=== PATIENT | male | born 1960 | race Caucasian/White ===

== ENCOUNTER → 2017-07-13 | Outpatient (CLI) | payer MEDICARE ==
[~2017-07-13] VITALS: Ht 171.4 cm; Wt 74.8 kg
[~2017-07-13] MED LIST: ALLO100T PO; CARV25TA PO; CHOL5000 PO; GLIP5TAB13 PO; LEVO100T7 PO; METF500T4 PO; MYCO500T3 PO; PRD10T PO; SIMV20TA3 PO; TACR1CAP8 PO; TIZA4CAP8 PO
== END ==
LOC: PREOP 05:34
PROVIDERS: ATTEND Otolaryngology Otolaryngology/Facial Plastic Surgery
DX: Z01.818 Encounter for other preprocedural examination (principal); J32.9 Chronic sinusitis, unspecified

== ENCOUNTER 2017-07-20 08:03 | Day surgery (SDC) | payer MEDICARE ==
[~2017-07-20] VITALS: Ht 171.4 cm; Wt 74.8 kg
--- OUTSIDE RECORDS SUMMARY | 2017-07-20 08:07 | XMS REPORT | Clinical Summary ---
Author Author Admin, [facility] Organization [facility] Address Unknown Phone Unavailable Allergies, Adverse Reactions, Alerts Allergy Name Reaction Description Start Date Severity Status Provider Allergies Unknown Conditions or Problems Problem Name Problem Code Onset Date Status Entry Date Provider Comment Standard Description Annotate HEALTH EXAMINATION OF DEFINED SUBPOPULATION V70.5 Active Ana Gonzales Health examination of defined subpopulations Medication List Medication Instructions Start Date Stop Date Generic Name NDC Status Provider Patient Instruction Drug Treatment Unknown - unknown Procedures Code Procedure Name Date Entry Date Standard Description CPT-03041 Spec Collection and Handling Fee 14:25:01 CDT CPT-50593 Spec Collection and Handling Fee 11:25:11 CDT
--- OUTSIDE RECORDS SUMMARY | 2017-07-20 08:07 | XMS REPORT | Referral Summary ---
Author Author [facility] Organization [facility] Address Unknown Phone Unavailable Care Team Providers Care Ship Painter Helper Name Role Phone Justin Julian PCP Encounter VC Date(s): 02/12/16 - 02/14/16 [facility] [address] [place] [address] Discharge Disposition: 01-Home or Self Care Attending Physician: Tamara Alberts MD Admitting Physician: Amanda Nunn MD Vital Signs Most recent to 1 oldest [Reference Range]: Temperature Oral 36.7 degC [35.8-37.3 degC] (02/14/16 11:00 AM) Temperature Temporal 36.2 degC Artery [36.3-37.8 *LOW* degC] (02/12/16 4:26 PM) Peripheral Pulse 78 bpm Rate [60-100 bpm] (02/14/16 11:00 AM) Respiratory Rate 18 br/min [14-20 br/min] (02/14/16 11:00 AM) Blood Pressure 155/89 mmHg [90-140/60-90 mmHg] *HI* (02/14/16 11:00 AM) Mean Arterial 111 mmHg Pressure, Cuff (02/14/16 11:00 AM) SpO2 99 % (02/14/16 11:00 AM) Problem List Condition Effective Dates Status Health Status Informant Acute Active pain(Confirmed) Bowel Active dysfunction(Confirme d)1 1Problem added automatically by system based on initiation of Bowel Dysfunction Plan of Care Allergies, Adverse Reactions, Alerts Substance Reaction Severity Status Tape Rash Active 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 Medications allopurinol 100 mg oral tablet 100 mg 1 tabs, Oral, Daily, 0 Refill(s) Start Date: 02/12/16 Status: Ordered baclofen 10 mg oral tablet 10 mg 1 tabs, Oral, TID, as needed for muscle spasm, 0 Refill(s) Start Date: 02/12/16 Status: Ordered carvedilol 25 mg oral tablet 25 mg 1 tabs, Oral, BID, 0 Refill(s) Start Date: 02/12/16 Status: Ordered Feosol 200 mg (65 mg elemental iron) oral tablet 1 tabs, Oral, Daily, 0 Refill(s) Start Date: 02/12/16 Status: Ordered Gammaplex 35 mg, IV, q4wk, [facility] Prescribed by Dr Campbell, 0 Refill(s) Start Date: 02/12/16 Status: Ordered glipiZIDE 5 mg oral tablet 2.5 mg 0.5 tabs, Oral, Daily, # 15 tabs, 0 Refill(s) Start Date: 02/14/16 Stop Date: 03/15/16 Status: Ordered HYDROcodone-acetaminophen 10 mg-325 mg oral tablet range dose 1 tabs, Oral, q6hr, as needed for pain, 0 Refill(s) Start Date: 02/12/16 Status: Ordered Imuran 50 mg oral tablet 50 mg 1 tabs, Oral, Daily, # 30 tabs, 0 Refill(s) Start Date: 02/14/16 Stop Date: 03/15/16 Status: Ordered levothyroxine 100 mcg (0.1 mg) oral tablet 100 mcg 1 tabs, Oral, Daily, 0 Refill(s) Start Date: 02/12/16 Status: Ordered OTC Vitamin D OTC Vitamin D, See Instructions, 1 tabs oral once daily, 0 Refill(s) Start Date: 02/12/16 Status: Ordered predniSONE 10 mg, Oral, Daily, 0 Refill(s) Start Date: 02/12/16 Status: Ordered Prograf 2 mg, Oral, q12hr, 0 Refill(s) Start Date: 02/12/16 Status: Ordered simvastatin 20 mg, Oral, Bedtime (once a day), 0 Refill(s) Start Date: 02/12/16 Status: Ordered Results Hematology Most recent to 1 oldest [Reference Range]: WBC [4.8-10.8 5.6 10*3/uL 10*3/uL] (02/14/16 6:32 AM) RBC [4.60-6.20] 3.10 *LOW* (02/14/16 6:32 AM) Hgb [14.0-18.0 8.8 gm/dL gm/dL] *LOW* (02/14/16 6:32 AM) Hct [42.0-52.0 %] 26.9 % *LOW* (02/14/16 6:32 AM) MCV [82.0-99.0 fL] 86.8 fL (02/14/16 6:32 AM) MCH [27.0-32.0 pg] 28.4 pg (02/14/16 6:32 AM) MCHC [32.0-36.0 32.7 gm/dL gm/dL] (02/14/16 6:32 AM) RDW [11.5-14.5 %] 15.0 % *HI* (02/14/16 6:32 AM) Platelet [150-400 153 10*3/uL 10*3/uL] (02/14/16 6:32 AM) MPV [9.4-12.3 fL] 10.1 fL (02/14/16 6:32 AM) Immature 1.0 % Granulocytes (02/13/16 8:25 AM) [0.0-1.0 %] Neutrophils [51-75 79 % %] *HI* (02/13/16 8:25 AM) Lymphocytes [20-46 10 % %] *LOW* (02/13/16 8:25 AM) Monocytes [4-11 %] 8 % (02/13/16 8:25 AM) Eosinophils [0-4 %] 1 % (02/13/16 8:25 AM) Basophils [0-2 %] 0 % (02/13/16 8:25 AM) Neutro Absolute 3.82 10*3 [1.90-7.00 10*3] (02/13/16 8:25 AM) Lymph Absolute 0.50 10*3 [0.80-3.30 10*3] *LOW* (02/13/16 8:25 AM) Elbert Absolute 0.40 10*3 [0.30-1.00 10*3] (02/13/16 8:25 AM) Eos Absolute 0.05 10*3 [0.00-0.50 10*3] (02/13/16 8:25 AM) Baso Absolute 0.00 10*3 [0.00-0.20 10*3] (02/13/16 8:25 AM) Nucleated RBC 0.0 /100 WBC Automated [0 /100 (02/13/16 8:25 AM) WBC] Chemistry Most recent to 1 oldest [Reference Range]: Sodium Lvl [136-144 135 mEq/L mEq/L] *LOW* (02/14/16 6:32 AM) Potassium Lvl 4.5 mEq/L [3.6-5.1 mEq/L] (02/14/16 6:32 AM) Chloride [99-109 112 mEq/L mEq/L] *HI* (02/14/16 6:32 AM) CO2 [22-32 mEq/L] 19 mEq/L *LOW* (02/14/16 6:32 AM) AGAP [3-20] 4 (02/14/16 6:32 AM) BUN [4-20 mg/dL] 30 mg/dL *HI* (02/14/16 6:32 AM) Glucose Lvl [70-100 128 mg/dL mg/dL] *HI* (02/14/16 6:32 AM) Creatinine Lvl 1.64 mg/dL [0.64-1.27 mg/dL] *HI* (02/14/16 6:32 AM) eGFR [>60] 44 1 *ABN* (02/14/16 6:32 AM) Calcium Lvl 9.0 mg/dL [8.6-10.0 mg/dL] (02/14/16 6:32 AM) Albumin Lvl [3.5-4.8 2.8 gm/dL gm/dL] *LOW* (02/14/16 6:32 AM) Total Protein 6.1 gm/dL [6.1-7.9 gm/dL] (02/12/16 1:02 AM) Globulin [1.9-4.3 2.8 gm/dL gm/dL] (02/12/16 1:02 AM) ALT [17-63 U/L] 15 U/L *LOW* (02/12/16 1:02 AM) AST [15-41 U/L] 14 U/L *LOW* (02/12/16 1:02 AM) Alk Phos [26-104 75 U/L U/L] (02/12/16 1:02 AM) Bili Total [0.2-1.2 0.5 mg/dL 2 mg/dL] (02/12/16 1:02 AM) Iron [65-175 mcg/dL] 76 mcg/dL (02/13/16 8:25 AM) TIBC [268-490 267 mcg/dL mcg/dL] *LOW* (02/13/16 8:25 AM) Iron Sat [11-46 %] 28 % (02/13/16 8:25 AM) Transferrin [180-329 179 mg/dL mg/dL] *LOW* (02/13/16 8:25 AM) Magnesium Lvl 1.2 mg/dL [1.8-2.5 mg/dL] *LOW* (02/13/16 8:25 AM) Phosphorus [2.4-4.7 2.5 mg/dL 3 mg/dL] (02/14/16 6:32 AM) Blood Glucose, 181 mg/dL Capillary [74-106 *HI* mg/dL] (02/14/16 12:19 PM) Hgb A1c [4.1-5.6 %] 6.7 % *HI* (02/14/16 6:32 AM) eAvg Glucose 145.6 mg/dL (02/14/16 6:32 AM) 1Result Comment: Multiply eGFR results by 1.21 for race. 2Result Comment: Naproxen, specifically the metabolite O-desmethylnaproxen, may cause spurious elevation in Total Bilirubin levels. 3Result Comment: High dosages of liposomal Amphotericin B (AmBisome) therapy or other drug preparations that use a liposomal envelope to facilitate drug delivery may cause falsely elevated results for phosphorus. Therapeutic Drug Monitoring Most recent to 1 oldest [Reference Range]: Tacrolimus (Prograf) 13.1 ng/mL 1 Level (02/13/16 8:25 AM) 1Result Comment: Tacrolimus interpretation: Therapeutic Range: 5-15 Toxic Range: >20 NDT: No Detectable Level Microbiology Reports TEST: Stool Culture w/ Campy & Shigatoxin STATUS: Order in Progress BODY SITE: SOURCE: Stool COLLECTED DATE/TIME: 02/12/16 8:48 AM Stool Culture Culture in progress No pathogens isolated to date Immunizations No data available for this section Procedures No data available for this section Social History Social History Type Response Smoking Status Never smoker Assessment and Plan No data available for this section
--- OUTSIDE RECORDS SUMMARY | 2017-07-20 08:07 | XMS REPORT | CCD ---
Author Author JAROD QUEEN Organization Unknown Address [address] [facility] [address] [place] [address] Care Team Providers Care Double Needle Operator Lockstitch Name Role Phone BETI JUSTICE, JOELLEN LINDA Attphys Allergies Allergy Code Allergy Type Reaction Status VANCOMYCIN 37141 Drug allergy REDMANS SYNDROME Active Active Medications Unknown or Not Available. Problems Unknown or Not Available. Procedures Procedure Code Procedure Type Date Neuroplasty &/transpos median nrv carpal tunne; (-74 Disc outpt h/[place] [address] CPT 10/21/2016 BEDSIDE GLUCOSE [id number] SNOMED CT 10/21/2016 Results BEDSIDE GLUCOSE - Collect Date/Time: 10/21/2016 06:34 Test Name Code Test Result Test Units Test Ref Range GLUCOSE POCT 145 MG/DL L=70 H=100 Function Status Unknown or Not Available. History of Immunizations Immunization Code Date influenza, injectable, quadrivalent, preservative free 150 2015 Plan of Treatment Unknown or Not Available. Social History Smoking Status Code Start Date End Date Never smoker [id number] Vital Signs Vital Sign Value Unit Date/Time Recent/Initial? BMI (Body Mass Index) 25.39 kg/m2 10/20/2016 07:48 Initial VS Weight Measured 167 [lb_av] 10/20/2016 07:48 Initial VS Height 68 [in_i] 10/20/2016 07:48 Initial VS BSA (Body Surface Area) 1.91 m2 10/20/2016 07:48 Initial VS Function Status Unknown or Not Available. Goals Unknown or Not Available. ASSESSMENTS Unknown or Not Available. Health Concerns Section Unknown or Not Available.
--- OUTSIDE RECORDS SUMMARY | 2017-07-20 08:07 | XMS REPORT | Clinical Summary ---
Author Author Admin, [facility] Organization [facility] Address Unknown Phone Unavailable Allergies, Adverse Reactions, [...] Procedure Name Date Entry Date Standard Description CPT-18140 Spec Collection and Handling Fee 14:25:01 CDT CPT-79178 Spec Collection and Handling Fee 11:25:11 CDT
--- OUTSIDE RECORDS SUMMARY | 2017-07-20 08:07 | XMS REPORT | Clinical Summary ---
Author Author Admin, [facility] Organization [facility] Address Unknown Phone Unavailable Allergies, Adverse Reactions, Alerts Allergy Name Reaction Description Start Date Severity Status Provider No Known Allergies Kristal Elder Conditions or Problems Problem Name Problem Code Onset Date Status Entry Date Provider Comment Standard Description Annotate HEALTH EXAMINATION OF DEFINED SUBPOPULATION V70.5 Active Ana Gonzales Health examination of defined subpopulations Diabetes, Type 2 250.00 Active Michael Travis MD Diabetes mellitus without mention of complication, type II or unspecified type, not stated as uncontrolled Hyperlipidemia 272.4 Active Michael Travis MD Other and unspecified hyperlipidemia Hypertension 401.9 Active Michael Travis MD Unspecified essential hypertension Hydrocele Active Michael Travis MD Hydrocele , unspecified Medication List Medication Instructions Start Date Stop Date Generic Name NDC Status Provider Patient Instruction ELIQUIS 5 MG ORAL TABS by mouth twice a day APIXABAN 22200191617 Active Michael Travis MD Active GAMMAPLEX 20 GM/400ML IV SOLN 35MG ONCE A MONTH IMMUNE GLOBULIN (HUMAN ) 33948773224 Active Michael Travis MD Active GLIPIZIDE 5 MG ORAL TABS by mouth twice a day GLIPIZIDE 09396591370 Active Michael Travis MD Active LEVOTHYROXINE SODIUM 100 MCG ORAL TABS Take one by mouth daily LEVOTHYROXINE SODIUM 90641174877 Active Michael Travis MD Active WELCHOL 625 MG ORAL TABS 3 pils daily COLESEVELAM HCL 96669667450 Active Michael Travis MD Active SIMVASTATIN 20 MG ORAL TABS Take one by mouth daily SIMVASTATIN 79556233233 Active Michael Travis MD Active CARVEDILOL 25 MG ORAL TABS by mouth twice a day CARVEDILOL 26794480808 Active Michael Travis MD Active CELLCEPT 500 MG ORAL TABS by mouth twice a day MYCOPHENOLATE MOFETIL 39141776173 Active Michael Travis MD Active ASTAGRAF XL 1 MG ORAL [id number] 3mg daily TACROLIMUS 07279086848 Active Micahel Travis MD Active PREDNISONE 10 MG ORAL TABS Take one by mouth daily PREDNISONE 64154280794 Active Michael Travis MD Active Vital Signs Date Name Value Unit Range Description blood pressure, diastolic - 8462-4 87 mm[Hg] BP calderon blood pressure, systolic - 8480-6 137 mm[Hg] BP sys height E&M - 8302-2 67 [in_us] Bdy height pulse rate E&M - 8867-4 77 /min Heart rate temperature E&M 97.6 [degF] Body temperature weight E&M - 3141-9 177.5 [lb_av] Weight Measured Encounters Code Encounter Date Provider Facility CPT-56814 Level 3 New Patient 11:50:18 LUMBER ESTIMATOR Michael Travis MD [facility] Procedures Code Procedure Name Date Entry Date Standard Description CPT-84457 Spec Collection and Handling Fee 14:25:01 CDT CPT-93450 Spec Collection and Handling Fee 11:25:11 CDT
--- OUTSIDE RECORDS SUMMARY | 2017-07-20 08:07 | XMS REPORT | Clinical Summary ---
Author Author Admin, [facility] Organization [facility] [employer] Address Unknown Phone Unavailable Allergies, Adverse Reactions, [...] Procedure Name Date Entry Date Standard Description CPT-60202 Spec Collection and Handling Fee 11:25:11 CDT
--- OUTSIDE RECORDS SUMMARY | 2017-07-20 08:07 | XMS REPORT | Clinical Summary ---
Author Author Admin, [facility] Organization [facility] [employer] Address Unknown Phone Unavailable Allergies, Adverse Reactions, [...] Procedure Name Date Entry Date Standard Description CPT-39498 Spec Collection and Handling Fee 14:25:01 CDT CPT-61888 Spec Collection and Handling Fee 11:25:11 CDT
--- OUTSIDE RECORDS SUMMARY | 2017-07-20 08:08 | XMS REPORT | Referral Summary ---
Author Author [facility] Organization [facility] Address Unknown Phone Unavailable Care Team Providers Care Packing And Final Assembly Supervisor Name Role Phone Justin Julian PCP Encounter VC Date(s): 03/23/16 - 03/31/16 [facility] [address] [place] [address] Discharge Disposition: 01-Home or Self Care Attending Physician: Beth Love DO Admitting Physician: Jenifer Tobar DO Vital Signs Most recent to 1 oldest [Reference Range]: Temperature Oral 36.7 degC [35.8-37.3 degC] (03/31/16 9:00 AM) Peripheral Pulse 72 bpm Rate [60-100 bpm] (03/31/16 9:31 AM) Heart Rate Monitored 80 bpm [60-100 bpm] (03/27/16 3:18 PM) Respiratory Rate 18 br/min [14-20 br/min] (03/31/16 9:00 AM) Blood Pressure 157/88 mmHg [90-140/60-90 mmHg] *HI* (03/31/16 9:31 AM) Mean Arterial 100 mmHg Pressure, Cuff (03/27/16 8:00 PM) SpO2 95 % (03/31/16 9:00 AM) Remote Telemetry Ongoing (03/27/16 8:00 AM) Problem List Condition Effective Dates Status Health Status Informant Acute Active pain(Confirmed) At risk of pressure Active sore(Confirmed) Bowel Active dysfunction(Confirme d)1 Fluid Active imbalance(Confirmed) 2 1Problem added automatically by system based on initiation of Bowel Dysfunction Plan of Care 2Problem added automatically by system based on initiation of Fluid Volume Imbalance Plan of Care Allergies, Adverse Reactions, Alerts Substance Reaction Severity Status Tape Rash Active 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 Medications acyclovir 400 mg oral tablet 400 mg 1 tabs, Oral, BID, X 7 days, # 14 tabs, 0 Refill(s), Pharmacy: [facility], 1 tabs Oral BID,x7 days Start Date: 03/31/16 Stop Date: 04/07/16 Status: Ordered carvedilol 25 mg oral tablet 25 mg 1 tabs, Oral, BID, 0 Refill(s) Start Date: 02/12/16 Status: Ordered CellCept 500 mg oral tablet 500 mg 1 tabs, Oral, BID, 1 hour before or 2 hours after meals, # 60 tabs, 0 Refill(s), Pharmacy: [facility], 1 tabs Oral BID,Instr:1 hour before or 2 hours after meals Start Date: 03/31/16 Status: Ordered Eliquis 5 mg, Oral, BID, 0 Refill(s) Start Date: 03/23/16 Status: Ordered Fish Oil Oral, Daily, 0 Refill(s) Start Date: 03/23/16 Status: Ordered Gammaplex 35 mg, IV, q4wk, [facility] Prescribed by Dr Campbell, 0 Refill(s) Start Date: 02/12/16 Status: Ordered glipiZIDE 2.5 mg, Oral, Daily, 0 Refill(s) Start Date: 03/23/16 Status: Ordered levothyroxine 100 mcg (0.1 mg) oral tablet 100 mcg 1 tabs, Oral, Daily, 0 Refill(s) Start Date: 02/12/16 Status: Ordered predniSONE 10 mg, Oral, Daily, 0 Refill(s) Start Date: 02/12/16 Status: Ordered Prograf 2 mg, Oral, q12hr, 0 Refill(s) Start Date: 02/12/16 Status: Ordered simvastatin 20 mg, Oral, Bedtime (once a day), 0 Refill(s) Start Date: 02/12/16 Status: Ordered Vitamin D3 Oral, Daily, 0 Refill(s) Start Date: 03/23/16 Status: Ordered Results Hematology Most recent to 1 oldest [Reference Range]: WBC [4.8-10.8 8.3 10*3/uL 10*3/uL] (03/31/16 6:52 AM) RBC [4.60-6.20] 3.22 *LOW* (03/31/16 6:52 AM) Hgb [14.0-18.0 9.3 gm/dL gm/dL] *LOW* (03/31/16 6:52 AM) Hct [42.0-52.0 %] 28.5 % *LOW* (03/31/16 6:52 AM) MCV [82.0-99.0 fL] 88.5 fL (03/31/16 6:52 AM) MCH [27.0-32.0 pg] 28.9 pg (03/31/16 6:52 AM) MCHC [32.0-36.0 32.6 gm/dL gm/dL] (03/31/16 6:52 AM) RDW [11.5-14.5 %] 16.2 % *HI* (03/31/16 6:52 AM) Platelet [150-400 194 10*3/uL 10*3/uL] (03/31/16 6:52 AM) MPV [9.4-12.3 fL] 9.9 fL (03/31/16 6:52 AM) Neutrophils [51-75 82 % %] *HI* (03/31/16 6:52 AM) Band Man [0-8 %] 2 % (03/31/16 6:52 AM) Boutte Man [0-1 %] 3 % *HI* (03/31/16 6:52 AM) Myelo Man 3 % (03/31/16 6:52 AM) Lymphocytes [20-46 5 % %] *LOW* (03/31/16 6:52 AM) Monocytes [4-11 %] 5 % (03/31/16 6:52 AM) Eosinophils [0-4 %] 0 % (03/31/16 6:52 AM) Basophils [0-2 %] 0 % (03/31/16 6:52 AM) Neutro Absolute 6.97 10*3 [1.90-7.00 10*3] (03/31/16 6:52 AM) Lymph Absolute 0.42 10*3 [0.80-3.30 10*3] *LOW* (03/31/16 6:52 AM) [place] Absolute 0.42 10*3 [0.30-1.00 10*3] (03/31/16 6:52 AM) Eos Absolute 0.00 10*3 [0.00-0.50 10*3] (03/31/16 6:52 AM) Baso Absolute 0.00 10*3 [0.00-0.20 10*3] (03/31/16 6:52 AM) Polychrom Occasional *ABN* (03/29/16 6:28 AM) Tear Cell Occasional *ABN* (03/28/16 6:25 AM) Ovalocytes Occasional *ABN* (03/28/16 6:25 AM) Schistocyte Occasional *ABN* (03/27/16 8:45 AM) Nucleated RBC 0.0 /100 WBC Automated [0 /100 (03/31/16 6:52 AM) WBC] Differential Manual *ABN* (03/31/16 6:52 AM) Sed Rate [0-15] 69 *HI* (03/26/16 9:37 AM) Chemistry Most recent to 1 oldest [Reference Range]: Sodium Lvl [136-144 134 mEq/L mEq/L] *LOW* (03/31/16 6:52 AM) Potassium Lvl 4.8 mEq/L [3.6-5.1 mEq/L] (03/31/16 6:52 AM) Chloride [99-109 106 mEq/L mEq/L] (03/31/16 6:52 AM) CO2 [22-32 mEq/L] 22 mEq/L (03/31/16 6:52 AM) AGAP [3-20] 6 (03/31/16 6:52 AM) BUN [4-20 mg/dL] 33 mg/dL *HI* (03/31/16 6:52 AM) Glucose Lvl [70-100 140 mg/dL mg/dL] *HI* (03/31/16 6:52 AM) Creatinine Lvl 2.29 mg/dL [0.64-1.27 mg/dL] *HI* (03/31/16 6:52 AM) eGFR [>60] 30 1 *ABN* (03/31/16 6:52 AM) Calcium Lvl 11.7 mg/dL [8.6-10.0 mg/dL] *HI* (03/31/16 6:52 AM) Albumin Lvl [3.5-4.8 2.8 gm/dL gm/dL] *LOW* (03/31/16 6:52 AM) Total Protein 5.5 gm/dL [6.1-7.9 gm/dL] *LOW* (03/26/16 9:37 AM) Globulin [1.9-4.3 3.2 gm/dL gm/dL] (03/23/16 3:03 PM) ALT [17-63 U/L] 15 U/L *LOW* (03/23/16 3:03 PM) AST [15-41 U/L] 19 U/L (03/23/16 3:03 PM) Alk Phos [26-104 96 U/L U/L] (03/23/16 3:03 PM) Bili Total [0.2-1.2 0.7 mg/dL 2 mg/dL] (03/23/16 3:03 PM) Iron [65-175 mcg/dL] 37 mcg/dL *LOW* (03/24/16 12:16 PM) TIBC [268-490 253 mcg/dL mcg/dL] *LOW* (03/24/16 12:16 PM) Iron Sat [11-46 %] 15 % (03/24/16 12:16 PM) Transferrin [180-329 170 mg/dL mg/dL] *LOW* (03/24/16 12:16 PM) Magnesium Lvl 1.6 mg/dL [1.8-2.5 mg/dL] *LOW* (03/31/16 6:52 AM) Phosphorus [2.4-4.7 4.7 mg/dL 3 mg/dL] (03/31/16 6:52 AM) Calcium Ionized 1.81 mmol/L [1.19-1.41 mmol/L] *HI* (03/31/16 6:52 AM) Lactic Acid Lvl 1.3 mEq/L [0.5-2.2 mEq/L] (03/23/16 3:03 PM) 25-Hydroxy D2 <7 ng/mL (03/25/16 6:45 AM) 25-Hydroxy D3 59 ng/mL (03/25/16 6:45 AM) 25-Hydroxy D Total 59 ng/mL 4 [30-74 ng/mL] (03/25/16 6:45 AM) PTH (Parathyroid 18.0 pg/mL Hormone) [12.0-88.0 (03/25/16 6:44 AM) pg/mL] Blood Glucose, 139 mg/dL Capillary [70-100 *HI* mg/dL] (03/31/16 5:56 AM) TSH with Reflex Free 2.51 T4 [0.35-5.50] (03/25/16 6:44 AM) Procalcitonin 0.37 ng/mL 5 [0.00-0.09 ng/mL] *HI* (03/23/16 3:03 PM) PTH Peptide-Lapine 0.7 pmol/L 6 [<2.0 pmol/L] (03/26/16 9:37 AM) 1Result Comment: Multiply eGFR results by 1.21 for race. 2Result Comment: Naproxen, specifically the metabolite O-desmethylnaproxen, may cause spurious elevation in Total Bilirubin levels. 3Result Comment: High dosages of liposomal Amphotericin B (AmBisome) therapy or other drug preparations that use a liposomal envelope to facilitate drug delivery may cause falsely elevated results for phosphorus. 4Result Comment: The desirable level of 25-Hydroxy Vitamin D Total(D2 + D3) is 30-74 ng/mL. A level consistently >200 is potentially toxic. 5Result Comment: Normal: <0.1 ng/mL (infants >72 hrs - adults) Suspected Lower Respiratory Tract Infection 0.10-0.25 ng/mL=Low likelihood for bacterial infection; Antibiotics discouraged. >0.25 ng/mL=Increased likelihood for bacterial infection; Antibiotics encouraged. Suspected Sepsis: Strongly consider initiating antibiotics in all unstable patients. 0.10-0.50 ng/mL=Low likelihood for sepsis; Antibiotics discouraged. >0.50 ng/mL=Increased likelihood for sepsis; Antibiotics encouraged. Decisions on antibiotic use should not be based solely on procalcitonin levels. If antibiotics are administered, repeat procalcitonin testing should be obtained every 2-3 days to consider early antibiotic cessation. PCT is a dynamic biomarker and most useful when trends are analyzed over time in accompaniment with other clinical data. Interpretation should be based upon clinical context and algorithms. 6Result Comment: Test Performed by: [place] [address] Janitorial Tech: Dave Uribe II, M.D., Ph.D. Therapeutic Drug Monitoring Most recent to 1 oldest [Reference Range]: Tacrolimus (Prograf) 11.1 ng/mL 1 Level (03/24/16 9:20 AM) 1Result Comment: Tacrolimus interpretation: Therapeutic Range: 5-15 Toxic Range: >20 NDT: No Detectable Level Urinalysis Most recent to 1 oldest [Reference Range]: UA Color Straw (03/23/16 3:24 PM) UA Appear Clear (03/23/16 3:24 PM) UA pH [5.0-8.0] 5.0 (03/23/16 3:24 PM) UA Leuk Est Negative [Negative] (03/23/16 3:24 PM) UA Nitrite Negative [Negative] (03/23/16 3:24 PM) UA Protein Negative [Negative] (03/23/16 3:24 PM) UA Glucose Pos 2+ [Negative] *ABN* (03/23/16 3:24 PM) UA Ketones Negative [Negative] (03/23/16 3:24 PM) UA Urobilinogen Negative [<1.0] (03/23/16 3:24 PM) UA Bili [Negative] Negative (03/23/16 3:24 PM) UA Blood [Negative] Pos 1+ *ABN* (03/23/16 3:24 PM) UA Spec Grav 1.005 [1.003-1.030] (03/23/16 3:24 PM) Type Clean Catch (03/23/16 3:24 PM) UA WBC [0-4] 0-2 (03/23/16 3:24 PM) UA RBC [0-2] 0-2 (03/23/16 3:24 PM) UA Bacteria Rare (03/23/16 3:24 PM) UA Mucous Present (03/23/16 3:24 PM) Microbiology Reports TEST: Herpes Simplex Culture STATUS: Auth (Verified) BODY SITE: SOURCE: Lesion COLLECTED DATE/TIME: 03/24/16 11:30 AM Herpes Simplex Culture No Herpes Simplex Virus Isolated TEST: Respiratory Virus Panel - PCR STATUS: Auth (Verified) BODY SITE: SOURCE: Nasopharyngeal Swab COLLECTED DATE/TIME: 03/23/16 3:25 PM Respiratory Virus Panel - PCR Negative for all strains tested. . Specimen tested for the following FDA approved viral targets: Influenza A, Influenza A subtype H1, Influenza A subtype H3, Influenza A 2009 H1N1, Influenza B, Respiratory Syncytial Virus subtype A, Respiratory Syncytial Virus subtype B, Adenovirus B/E, Adenovirus C, Rhinovirus, Parainfluenza virus 1, Parainfluenza virus 2, Parainfluenza virus 3, and Human Metapneumovirus. . The following viral targets were also tested. Although not FDA approved, these targets have been validated by our laboratory for clinical diagnosis: Parainfluenza virus 4, Coronavirus 229E, Coronavirus NL63, Coronavirus HKU1, and Coronavirus OC43. TEST: Blood Culture1 STATUS: Auth (Verified) BODY SITE: SOURCE: Blood COLLECTED DATE/TIME: 03/23/16 3:10 PM Blood Culture No growth after 5 days of incubation. TEST: Blood Culture STATUS: Auth (Verified) BODY SITE: SOURCE: Blood COLLECTED DATE/TIME: 03/23/16 3:03 PM Blood Culture No growth after 5 days of incubation. INTERPRETIVE DATA 1Pediatric bottle ONLY received Immunizations No data available for this section Procedures Procedure Date Related Diagnosis Body Site Colonoscopy Polypectomy1 03/27/16 Esophagogastroduodenoscopy Biopsy2 03/27/16 Renal biopsy; percutaneous, by trocar or 03/26/16 needle 1auto-populated from documented surgical case 2auto-populated from documented surgical case Social History Social History Type Response Smoking Status Never smoker Assessment and Plan No data available for this section
--- OUTSIDE RECORDS SUMMARY | 2017-07-20 08:08 | XMS REPORT | Continuity of Care Document ---
Author Author [facility] Organization [facility] Address Unknown Phone Unavailable Allergies There is no data. Medications There is no data. Problems Date Dx Coded Attending Type Code Diagnosis Diagnosed By 10/01/2012 Bassam Skinner MD Final 354.1 MEDIAN NERVE LESION NEC 10/01/2012 Bassam Skinner MD Admitting 782.0 SKIN SENSATION DISTURB 10/01/2012 Bassam Skinner MD Admitting 782.0 SKIN SENSATION DISTURB Procedures There is no data. Results There is no data. Encounters ACCT No. Visit Date/Time Discharge Status Pt. Type Provider Facility Loc./Unit Complaint [id number] 10/01/2012 14:30:00 10/01/2012 23:59:59 CLS Outpatient Bassam Skinner MD [facility] [id number] 07/13/2016 09:34:30 ACT Unknown
[2017-07-20] MEDS ORDERED: LACTATED RINGERS 1,000 ML IV PRN ×2 (08:13→09:19)
[2017-07-20] MEDS ORDERED: AMPICILLIN/SULBACTAM INJECTION 1.5 GM in NS (IVPB) 50 ML IV ONE (08:15)
[2017-07-20] MEDS ORDERED: HYDROCORTISONE 100 MG/2 ML (Solu-CORTEF) VIAL IV ONE (08:15)
[2017-07-20 08:52] VITALS: BP 126/74
[2017-07-20] MEDS ORDERED: BSS 15 ML ONE (10:54)
[2017-07-20] MEDS ORDERED: LIDOCAINE/EPI 1%-1:200,000 (XYLOCAINE) 10 ML VIAL ONE (10:54)
[2017-07-20] MEDS ORDERED: COCAINE HCL 4% 2 ML SYR ONE ×2 (10:54→11:57)
[2017-07-20] MEDS ORDERED: PHENYLEPHRINE 0.5% NASAL SPR (NEO-SYNEPHRINE) REG ONE (10:54)
[2017-07-20 11:12] LABS: CREATININE SERUM 2.34 MG/DL (0.60-1.30); POTASSIUM 3.3 MMOL/L (3.6-5.0)
--- NOTE | 2017-07-20 12:12 | Progress Note-Pre Operative ---
Pre-Operative Progress Note H&P Reviewed The H&P was reviewed, patient examined and no changes noted. Date Seen by Provider: Jul 20, 2017 Time Seen by Provider: 12:00 Date H&P Reviewed: Jul 20, 2017 Time H&P Reviewed: 12:00 Pre-Operative Diagnosis: Bilat Chronic Sinus Disease, Bilat Hyper of Inf Turbs , deviated septum SEAN GRANADOS MD Jul 20, 2017 12:12 pm
[2017-07-20] MEDS ORDERED: fentaNYL INJECTION 100 MCG/2 ML AMP ONE (12:21)
[2017-07-20] MEDS ORDERED: proPOfol 200 MG/20 ML (DIPRIVAN) VIAL IV ONE (12:21)
[2017-07-20] MEDS ORDERED: DEXAMETHASONE 10 MG/ML (DECADRON) 1 ML VIAL ONE (12:21)
[2017-07-20] MEDS ORDERED: LIDOCAINE PF 2% 5 ML (XYLOCAINE) VIAL ONE (12:21)
[2017-07-20] MEDS ORDERED: MIDAZOLAM 2 MG/2 ML (VERSED) VIAL ONE (12:21)
[2017-07-20] MEDS ORDERED: ONDANSETRON 4 MG/2 ML (SDV) Z0FRAN ONE (12:21)
[2017-07-20] MEDS ORDERED: SEVOFLURANE (ULTANE) 15 ML INHAL SOLN ONE ×4 (12:21→13:28)
[2017-07-20] MEDS ORDERED: PHENYLEPHRINE 100 MCG/ML 10 ML (ANESTHESIA) SYR ONE (13:29)
[2017-07-20] MEDS ORDERED: D5 1/2 NS W/KCL 20 MEQ/L 1,000 ML IV SCH (13:39)
--- NOTE | 2017-07-20 13:39 | Progress Note-Post Operative ---
Post-Operative Progess Note Surgeon (s)/Channel Sales Manager (s) Surgeon SEAN GRANADOS MD Channel Sales Manager n/a Pre-Operative Diagnosis Bilat Chronic Sinus Disease, Bilat Hyper of Inf Turbs, deviated septum Post-Operative Diagnosis same Post-Op Procedure Note Date of Procedure: Jul 20, 2017 Name of Procedure Performed: Bilat ESs, Bilat Red of Inf Turbs, Right Myr with tube Description & Findings Description and Findings: n/a Anesthesia Type 50cc Estimated Blood Loss minimal Packing DNP-Bilaterally. Specimen(s) collected/removed Bilat Chronic Sinus disease SEAN GRANADOS MD Jul 20, 2017 1:39 pm
[2017-07-20] MEDS ORDERED: predniSONE 20 MG TAB PO ONE (13:45)
[2017-07-20] MEDS ORDERED: HYDROcodone/APAP 5 MG/325 MG (LORTAB) TAB PO PRN (13:45)
[2017-07-20] MEDS ORDERED: PROMETHAZINE INJ 25 MG/ML (PHENERGAN) AMP IVP PRN (13:45)
[2017-07-20] MEDS ORDERED: ACETAMINOPHEN 325 MG TABLET/CAPLET (TYLENOL) PO PRN (13:45)
[2017-07-20] MEDS ORDERED: ONDANSETRON 4 MG/2 ML (SDV) Z0FRAN IVP PRN (14:00)
[2017-07-20] MEDS ORDERED: morphine INJ 10 MG/ML 1ML (SYR OR VIAL) IVP PRN (14:00)
[2017-07-20] MEDS ORDERED: GLYCOPYRROLATE 0.2 MG/ML (ROBINUL) 2 ML VIAL ONE (14:05)
[2017-07-20] MEDS ORDERED: NEOSTIGMINE (BLOXIVERZ ) 1 MG/1ML 10 ML VIAL ONE (14:05)
[2017-07-20 14:19] LABS: CALCIUM 9.4 MG/DL (8.5-10.1); CREATININE SERUM 3.22 MG/DL (0.60-1.30)
[2017-07-20 14:29] LABS: POTASSIUM 5.6 MMOL/L (3.6-5.0)
[2017-07-20] MEDS ORDERED: AMOX-355 PO (14:52)
[2017-07-20] MEDS ORDERED: ACHD5005 PO (14:52)
[2017-07-20] MEDS ORDERED: PRD20T PO (14:52)
[2017-07-20 15:30] VITALS: BP 146/74
[2017-07-20 15:50] LABS: CALCIUM 9.3 MG/DL (8.5-10.1); CREATININE SERUM 3.12 MG/DL (0.60-1.30); POTASSIUM 5.4 MMOL/L (3.6-5.0)
[2017-07-20 16:00] VITALS: BP 139/74
[2017-07-20 16:30] VITALS: BP 141/79
[2017-07-20 17:10] VITALS: BP 141/79
== END 2017-07-20 17:10 | disposition home or self-care (01) ==
LOC: SDC 08:03
PROVIDERS: ATTEND Otolaryngology Otolaryngology/Facial Plastic Surgery
DX: J32.0 Chronic maxillary sinusitis (principal); J32.2 Chronic ethmoidal sinusitis; J34.3 Hypertrophy of nasal turbinates; H65.21 Chronic serous otitis media, right ear; Z94.0 Kidney transplant status; I10 Essential (primary) hypertension; E11.9 Type 2 diabetes mellitus without complications; E03.9 Hypothyroidism, unspecified; Z86.718 Personal history of other venous thrombosis and embolism; Z79.84 Long term (current) use of oral hypoglycemic drugs; Z79.52 Long term (current) use of systemic steroids; Z79.899 Other long term (current) drug therapy
CPT/HCPCS: 36415; 80048; 82962; 87070; 87075; 87077; 87081; 87186; 87205; 88305